=== PATIENT | male | born 1985 | race Caucasian/White ===

== ENCOUNTER 2018-09-04 11:38 | Emergency (ER) | payer BC ==
[~2018-09-04] VITALS: Ht 193 cm; Wt 108.9 kg
[~2018-09-04 11:38] MED LIST: PREDNISONE50 MG PO
[2018-09-04 12:05] LABS: BILIRUBIN NEGATIVE (NEGATIVE); BLOOD NEGATIVE (NEGATIVE); CLARITY CLEAR (CLEAR); COLOR YELLOW (YELLOW); GLUCOSE NEGATIVE (NEGATIVE); KETONE TRACE (NEGATIVE); LEUKO ESTERASE NEGATIVE (NEGATIVE); NITRITE NEGATIVE (NEGATIVE); UROBILINOGEN 0.2 E.U./dl (0.2-1.0)
[2018-09-04 12:19] LABS: EPITHELIAL CELLS 0-2
[2018-09-04 12:20] LABS: BACTERIA 2+; CALCIUM OXALATE CRYSTALS 1+
[2018-09-04] MEDS ORDERED: CYCLOBENZAPRINE5 M3 PO (13:12)
[2018-09-04] MEDS ORDERED: Motrin,Rufen800 MG PO (13:12)
== END 2018-09-04 13:16 | disposition home or self-care (01) ==
LOC: ED 11:38
PROVIDERS: Physician Assistant
DX: M54.5 Low back pain (principal)